=== PATIENT | female | born 1945 | race Hispanic/Latino ===

== ENCOUNTER 2017-03-17 15:32 | Emergency (ER) | payer OTHER ==
[2017-03-17] MEDS ORDERED: ACETAMINOPHEN 325 MG TAB ONE (15:43)
[2017-03-17] MEDS ORDERED: TRAMADOL HCL 50 MG TABLET ONE (15:43)
== END 2017-03-17 16:11 | disposition home or self-care (01) ==
LOC: EDH 15:32
DX: S63.697A Other sprain of left little finger, initial encounter (principal); I10 Essential (primary) hypertension; E11.9 Type 2 diabetes mellitus without complications; E78.5 Hyperlipidemia, unspecified; Z87.891 Personal history of nicotine dependence; X58.XXXA Exposure to other specified factors, initial encounter; Y93.89 Activity, other specified; Y92.89 Other specified places as the place of occurrence of the external cause; Y99.8 Other external cause status
CPT/HCPCS: 29130; 73140

== ENCOUNTER → 2017-11-22 | Outpatient (CLI) | payer OTHER | END | disposition home or self-care (01) | LOC: RAH 09:27 | PROVIDERS: ATTEND Orthopaedic Surgery | DX: M19.011 Primary osteoarthritis, right shoulder (principal); M75.121 Complete rotator cuff tear or rupture of right shoulder, not specified as traumatic; I10 Essential (primary) hypertension; E11.9 Type 2 diabetes mellitus without complications; E78.5 Hyperlipidemia, unspecified | CPT/HCPCS: 73221 ==

== ENCOUNTER → 2018-05-02 | Outpatient (CLI) | payer OTHER | END | disposition home or self-care (01) | LOC: RAH 08:10 | PROVIDERS: ATTEND Internal Medicine | DX: K76.0 Fatty (change of) liver, not elsewhere classified (principal); N28.1 Cyst of kidney, acquired | CPT/HCPCS: 76700 ==

== ENCOUNTER → 2020-07-24 | Outpatient (CLI) | payer OTHER | END | disposition home or self-care (01) | LOC: RAH 07:33 | PROVIDERS: ATTEND Internal Medicine Gastroenterology | DX: R10.13 Epigastric pain (principal); N28.1 Cyst of kidney, acquired; K76.0 Fatty (change of) liver, not elsewhere classified | CPT/HCPCS: 76700 ==

== ENCOUNTER → 2021-12-28 | Outpatient (CLI) | payer OTHER | END | disposition home or self-care (01) | LOC: RAH 12:00 | PROVIDERS: ATTEND Internal Medicine | DX: M47.815 Spondylosis without myelopathy or radiculopathy, thoracolumbar region (principal); R10.9 Unspecified abdominal pain | CPT/HCPCS: 74021 ==

== ENCOUNTER → 2022-06-23 | Outpatient (CLI) | payer OTHER | END | disposition home or self-care (01) | LOC: RAH 12:57 | PROVIDERS: ATTEND Internal Medicine Cardiovascular Disease | DX: Z13.6 Encounter for screening for cardiovascular disorders (principal) | CPT/HCPCS: 75571 ==

== ENCOUNTER → 2024-05-28 | Outpatient (CLI) | payer OTHER, MEDICARE ==
--- NOTE | 2024-05-28 14:00 | HMCIMG ---
DEXA BONE DENSITY SURVEY HISTORY: Osteoporosis COMPARISON: None FINDINGS: Bone densitometry study was performed. Bone mineral density of the lumbar spine is 0.927 gram per centimeter square which corresponds to a T score of -1.1 and a Z score of 1.5. Bone mineral density of the left hip is 0.842 grams per centimeter square which corresponds to a T score of -0.8 and a Z score of 1.2. IMPRESSION: 1. Osteopenia of the lumbar spine and normal bone mineral density of left hip.
== END | disposition home or self-care (01) ==
LOC: RAH 13:11
PROVIDERS: ATTEND Internal Medicine
DX: M85.88 Other specified disorders of bone density and structure, other site (principal); M81.0 Age-related osteoporosis without current pathological fracture
CPT/HCPCS: 77080

== ENCOUNTER 2024-09-28 13:44 | Emergency (ER) | payer MEDICARE, OTHER ==
[~2024-09-28] VITALS: Ht 152.4 cm; Wt 83.9 kg
[2024-09-28] MEDS: ORPHENADRINE 60MG/2ML IM ONE (14:27)
[2024-09-28] MEDS: TRIAMCINOLONE ACETONIDE 40 MG/ML 1ML VIAL IM ONE (14:27)
[2024-09-28] MEDS ORDERED: METH-662 PO (15:17)
[2024-09-28] MEDS ORDERED: LIDO1ADH71 TP (15:17)
--- NOTE | 2024-09-28 15:17 | ERN ---
General Chief Complaint: Hip Pain/Injury Stated Complaint: HIP PAIN Time Seen by MD: 13:46 Source: patient, family History of Present Illness Initial Comments Patient is a 78-year-old female coming in complaining of multiple joint pains. Patient states that she has been having hip pain for several months and recently started having left shoulder pain. States he has she attributes this to over usage but states he has not fallen has been evaluated by her PCP in his pending re-evaluation. Allergies: Coded Allergies: lisinopril (Unverified Allergy, Severe, SEVERE COUGH, 10/07/11) Past Medical History Past Medical History: Diabetes-Type II, High Cholesterol, Hypertension, Hypothyroid Past Surgical History: None ROS Dictation CONSTITUTIONAL: No chills, no fever, no weakness, no diaphoresis, no malaise. HEAD/FACE: No signs of trauma. EENT: No eye pain, no blurred vision, no tearing, no double vision, no ear pain, no ear discharge, no nose pain, no nasal congestion, no throat pain, no throat swelling, no mouth pain. RESPIRATORY: No cough, no orthopnea, no SOB, no stridor, no wheezing. CARDIOVASCULAR: No chest pain, no edema, no palpitations, no syncope. GASTROINTESTINAL/ABDOMINAL: No abdominal pain, no constipation, no diarrhea, no nausea, no vomiting. GENITOURINARY: No abnormal discharge, no dysuria, no frequent urination, no hematuria. No complaints of pain in the genitals. MUSCULOSKELETAL: No back pain, no gout, joint pain, no joint swelling, muscle pain, muscle stiffness, neck pain. INTEGUMENTARY: No change in color, no change in hair/nails, no dryness, no lesion, no lumps, no rash. NEUROLOGICAL/PSYCH: No anxiety, not depressed, no emotional problem, no headache, no numbness, no pre-existing deficit, no history of seizures, no tremors, no weakness. HEMATOLOGIC/LYMPHATIC: Not anemic, no history of blood clots, no apparent bleeding, no bruising, glands not swollen. All Systems Negative, Except as Noted. Physical Exam Physical Exam Dictation VITAL SIGNS: Reviewed. GENERAL APPEARANCE: Alert, oriented x3, no acute distress, obese. HEAD AND FACE: Non-traumatic. EYES: PERRL, pink conjunctivas, eyelid no trauma, anterior chamber clear. EARS: Pinnas intact and no signs of trauma or erythema. Ear canals clear and no discharge. TMs no erythema. NOSE: No discharge, no bleeding. OROPHARYNX: Mouth normal, teeth no caries, tongue pink. Pharynx clear, no erythema. Tonsils no exudates, no abscesses noted. Mucous membrane moist. NECK: Supple, non-tender, no thyromegaly, no masses, no JVD, no bruits. BREAST: Deferred. CHEST: No tenderness, no crepitus, no paradoxical movement, no retractions. LUNGS: Clear, well-ventilated, symmetric, no rales, no wheezing, no rhonchi, no stridor, good breath sounds bilaterally. HEART: Regular rate, regular rhythm, no murmur, no gallops. VASCULAR: No peripheral edema. ABDOMEN: Soft, positive bowel sounds, nondistended, no guarding, nontender, no rebound, no masses no hepatomegaly, no splenomegaly, no Ambriz's sign, no hernias. RECTAL: Deferred. GENITAL: Deferred. NEUROLOGICAL: Normal speech, gross motor function intact, gross sensory function intact. MUSCULOSKELETAL: Neck nontender, full range of motion, back nontender, full range of motion. EXTREMITIES: Nontender, full range of motion. SKIN: Color pink, dry, no turgor, no rash, no lacerations, no abrasions, no contusions. LYMPHATICS: Deferred. Results Laboratory and Microbiology Labs Reviewed?: Yes MDM MDM: Differential diagnosis: Arthritis of the hips, arthritis of the shoulder, Rationale: Tests considered and ordered secondary to shared decision making include: Previous outside records reviewed: Old ER visits. Risk of complication and/or morbidity or mortality of patient management: None Medications-Per medication reconciliation Need for hospitalization: Patient does not meet criteria for hospitalization. Need for emergency major/minor surgery: No Patient is a 78-year-old female coming in complaining of multiple joint pain. On physical exam joints are aligned no swelling. Patient received antispasmodics anti-inflammatories states that her pain has improved significantly and she can move her neck. Patient will be discharged in stable condition with a diagnosis of muscle spasms of the neck and back as well as arthritis of the hips ED Course Orders Procedure Category Date Status Time Orphenadrine Citrate PHA 09/28/24 Complete (Norflex) 14:30 Triamcinolone Acet PHA 09/28/24 Complete 40mg/Ml 1ml (Kenalog 14:30 Current Medications Medications (Trade) Dose Ordered Sig/Deangelo Route PRN Reason Start Time Stop Time Status Last Admin Dose Admin Orphenadrine Citrate (Norflex) 60 mg ONCE ONCE IM 09/28/24 14:30 09/28/24 14:31 DC 09/28/24 14:27 Triamcinolone Acetonide (Kenalog 40) 40 mg ONCE ONCE IM 09/28/24 14:30 09/28/24 14:31 DC 09/28/24 14:27 Vital Signs Date Time Temp Pulse Resp B/P (MAP) Pulse Ox O2 Delivery O2 Flow Rate FiO2 09/28/24 13:48 98.1 72 16 185/92 94 Room Air* 0 21 09/28/24 13:45 98.1 72 16 185/92 94 Room Air 0 DX & DISP Disposition: Discharge Departure Impression: Primary Impression: Arthritis pain of hip Additional Impression: Neck muscle spasm Condition: Stable Scripts Lidocaine (Lidocaine Pain Relief) 4 % Adh..patch 1 PATCH TP DAILY for 30 Days, #30 PATCH 0 Refills Prov: SERA ESCAMILLA MD 09/28/24 Methocarbamol (Robaxin) 750 Mg Tab 1 TAB PO BID for 7 Days, #14 TAB 0 Refills Prov: SERA ESCAMILLA MD 09/28/24 Additional Instructions: FOLLOW-UP WITH PRIMARY CARE PROVIDER IN 1 TO 2 DAYS. TAKE MEDICATIONS DIRECTED HERE IN THE EMERGENCY ROOM. OKAY TO CONTINUE HOME MEDICATIONS UNLESS OTHERWISE DISCUSSED DURING YOUR VISIT IN THE EMERGENCY ROOM TODAY. RETURN TO YOUR NEAREST EMERGENCY ROOM IF SYMPTOMS WORSEN OR IF THERE IS NO IMPROVEMENT. CALL 911 IF YOU NEED IMMEDIATE ASSISTANCE. TAKE TYLENOL [id number] NEEDED AND IF NO CONTRAINDICATIONS ARE PRESENT. INCREASE ORAL HYDRATION. A WOUND CULTURE OR URINE CULTURE WAS ORDERED HERE IN THE EMERGENCY ROOM DEPARTMENT PLEASE FOLLOW-UP WITH PRIMARY CARE PROVIDER AND ADVISE THEM TO GET REPORTS FROM OUR FACILITY. IF YOU HAD ANY DONNA WRAP/SPLINTS THAT WERE APPLIED HERE, PLEASE DO NOT REMOVE THEM UNTIL YOU SEE YOUR PRIMARY CARE OR SPECIALTY. Referrals: Referrals: RENNY SOLORZANO MD (PCP) Time of Disposition: 15:16 SERA ESCAMILLA MD Sep 28, 2024 15:17
[2024-09-28 15:45] VITALS: BP 175/80; PULSE 70; RESP 16; TEMP 98; O2SAT 94
== END 2024-09-28 15:52 | disposition home or self-care (01) ==
LOC: EDH 13:44
DX: M16.12 Unilateral primary osteoarthritis, left hip (principal); M62.838 Other muscle spasm; E03.9 Hypothyroidism, unspecified; E11.9 Type 2 diabetes mellitus without complications; E78.00 Pure hypercholesterolemia, unspecified; I10 Essential (primary) hypertension; Z88.8 Allergy status to other drugs, medicaments and biological substances
CPT/HCPCS: 99284; 96372 ×2; J3301; J2360

== ENCOUNTER 2024-11-02 18:21 | Emergency (ER) | payer OTHER ==
[~2024-11-02] VITALS: Ht 154.9 cm; Wt 83.9 kg
[~2024-11-02 18:21] MED LIST: LIDO1ADH71 TP; METH-662 PO
--- NOTE | 2024-11-02 19:56 | HMCIMG ---
EXAM: CR right Knee, 4 View. CLINICAL HISTORY: fall COMPARISON: None provided. FINDINGS: BONES: No acute fracture or aggressive appearing osseous lesion. JOINTS: The joint spaces show no significant degenerative disease. There is no joint effusion appreciated. SOFT TISSUES: The soft tissues are unremarkable. IMPRESSION: No acute osseous pathology evident. /[place]
--- NOTE | 2024-11-02 20:04 | HMCIMG ---
EXAM: CR right foot, 3 View. CLINICAL HISTORY: fall COMPARISON: None provided. FINDINGS: BONES: No fracture JOINTS: The joint spaces appear within normal limits. No dislocation. SOFT TISSUES: The soft tissues are unremarkable. MISCELLANEOUS: Large calcaneal spur IMPRESSION: 1. Large calcaneal spur 2. No fracture /[place]
--- NOTE | 2024-11-02 20:17 | ERN ---
ED Note History of Present Illness Stated Complaint: RT KNEE INJURY Chief Complaint: Knee Injury/Swelling Time Seen by MD: 18:23 Time Seen by Midlevel: 18:26 Dictation: 79-year-old female with a history of hypertension diabetes coming in with complaints of right knee pain, left foot pain and lower back pain status post fall. Patient was sitting on a bench states it was pretty has been when she got off she fell on landing on her knee. No head injury, no LOC, no blood thinners. Allergies: Coded Allergies: lisinopril (Unverified Allergy, Severe, SEVERE COUGH, 10/07/11) Home Meds Active Scripts Lidocaine (Lidocaine Pain Relief) 4 % Adh..patch, 1 PATCH TP DAILY for 30 Days, #30 PATCH 0 Refills Prov:SERA ESCAMILLA MD 09/28/24 Methocarbamol (Robaxin) 750 Mg Tab, 1 TAB PO BID for 7 Days, #14 TAB 0 Refills Prov:SERA ESCAMILLA MD 09/28/24 Past Medical History Past Medical History: Diabetes-Type II, High Cholesterol, Hypertension, Hypothyroid Surgical History: None Review of System Dictation Constitutional: Negative for fever,chills, and weight loss Eyes: Negative for injury, pain,redness, and discharge ENT: Negative for injury,pain or swelling Cardiovascular: Negative for chest pain, palpitations, and edema Respiratory: Negative for shortness of breath, cough, and wheezing, Abdomen/GI: Negative for abdominal pain, nausea, vomiting, diarrhea, and constipation Back: Negative for injury and pain : Negative for injury, bleeding and discharge MS/Extremity: Complaining of right knee pain, left foot pain and back pain Skin: Negative for rash, and discoloration Neuro: Negative for headache, weakness, numbness, tingling, and seizure Psych: Negative for suicide ideation, homicidal ideation, and hallucinations Review of Systems: was completed Initial Vital Sign VS Vital Signs Date Time Temp Pulse Resp B/P (MAP) Pulse Ox O2 Delivery O2 Flow Rate FiO2 11/02/24 18:23 98.1 75 20 189/109 99 Room Air Physical Exam Dictation General: awake, alert, NAD Head/Face: Normocephalic, atraumatic Eyes: PERRL, EOMI, vision at baseline ENT: oral cavity clear, TMs clear, no signs of infection Neck: Trachea midline, supple, no nuchal rigidity Cardiovascular: RRR, normal S1/S2, No MRGs, no JVD Respiratory: CTAB, no respiratory distress, No rales or wheezes Abdomen: Soft, non-tender, non-distended, normal bowel sounds, no guarding or rebound. Skin: Warm, dry, normal turgor, no rash, superficial abrasion to the right knee MS/Extremity: Pulses equal, no cyanosis, neurovascular intact, FROM Neuro: COAx4, GCS 15, strength 5/5, CN 2-12 intact, normal cerebellar exam, normal gait, Psych: Normal behavior, mood, and affect normal Results (Laboratory/Radiology) X-RAY Comment: [facility] [id number] [place] [id number] IMAGING REPORT Signed PATIENT: VARUN MEJIA MR#: [id number] : 1945 SEX: F AGE: 79 LOCATION: [facility] ORDER 29 STATUS: REG ER REPORT#: [id number] SERVICE 27 REASON: fall ORDERING PHYSICIAN: BOBY HOGUE METAL INSPECTOR PROCEDURE: KNEE 4V RT - KNEE 4+VWS RT EXAM: CR right Knee, 4 View. CLINICAL HISTORY: fall COMPARISON: None provided. FINDINGS: BONES: No acute fracture or aggressive appearing osseous lesion. JOINTS: The joint spaces show no significant degenerative disease. There is no joint effusion appreciated. SOFT TISSUES: The soft tissues are unremarkable. IMPRESSION: No acute osseous pathology evident. /[place] DICTATED BY: NIK ZALDIVAR MD DATE: 11/02/242054 ELECTRONICALLY SIGNED BY: NIK ZALDIVAR MD DATE: 11/02/242054 [facility] [facility] [id number] [place] [id number] IMAGING REPORT Signed PATIENT: VARUN MEJIA MR#: [id number] : 1945 SEX: F AGE: 79 LOCATION: ED ORDER 29 STATUS: REG ER HOSPITAL REPORT#: [id number] SERVICE 27 REASON: fall ORDERING PHYSICIAN: BOBY HOGUE NP PROCEDURE: FT 3VW LT - FOOT COMP 3+VWS LT EXAM: CR right foot, 3 View. CLINICAL HISTORY: fall COMPARISON: None provided. FINDINGS: BONES: No fracture JOINTS: The joint spaces appear within normal limits. No dislocation. SOFT TISSUES: The soft tissues are unremarkable. MISCELLANEOUS: Large calcaneal spur IMPRESSION: 1. Large calcaneal spur 2. No fracture /[place] DICTATED BY: NIK ZALDIVAR MD DATE: 11/02/242103 ELECTRONICALLY SIGNED BY: NIK ZALDIVAR MD DATE: 11/02/242103 [address] [place] [address] IMAGING REPORT Signed PATIENT: VARUN MEJIA MR#: [id number] : 1945 SEX: F AGE: 79 LOCATION: [facility] ORDER 29 STATUS: REG ER HOSPITAL REPORT#: [id number] SERVICE 27 REASON: fall ORDERING PHYSICIAN: BOBY HOGUE NP PROCEDURE: LUMB 2 3VW - LUMBAR SPINE 2-3VWS EXAM: CR Lumbar Spine, 2 views CLINICAL HISTORY: Fall. COMPARISON: None provided. FINDINGS: Grade 1 degenerative anterolisthesis of L4 on L5. Mild osteopenia. Mild spondylosis and degenerative disc space narrowing, most pronounced at L4-L5. Normal vertebral body heights. No acute fracture. Atherosclerotic vascular calcifications. IMPRESSION: No acute bony abnormality is evident. Grade 1 degenerative anterolisthesis of L4 on L5. Mild osteopenia. Mild spondylosis and degenerative disc space narrowing, most pronounced at L4-L5. /[place] DICTATED BY: RENEE LOYD Jr., MD DATE: 11/02/242201 ELECTRONICALLY SIGNED BY: RENEE LOYD Jr., MD DATE: 11/02/242201 ED Course ED Course Orders Procedure Category Date Status Time Knee 4+Vws Rt RAD 11/02/24 Resulted 18:28 Foot Comp 3+Vws Lt RAD 11/02/24 Resulted 18:28 Lumbar Spine 2-3vws RAD 11/02/24 Resulted 18:28 Acetaminophen 325 Tab PHA 11/02/24 Complete (Tylenol 325mg Tab 18:30 Current Medications Medications (Trade) Dose Ordered Sig/Deangelo Route PRN Reason Start Time Stop Time Status Last Admin Dose Admin Acetaminophen (TYLenol 325MG TAB) 650 mg ONCE STAT PO 11/02/24 18:30 11/02/24 18:37 DC 11/02/24 19:30 Vital Signs Date Time Temp Pulse Resp B/P (MAP) Pulse Ox O2 Delivery O2 Flow Rate FiO2 11/02/24 18:23 98.1 75 20 189/109 99 Room Air Medical Decision Making MDM MDM: 79-year-old female with a history of hypertension diabetes coming in with complaints of right knee pain, left foot pain and lower back pain status post fall. Patient was sitting on a bench states it was pretty has been when she got off she fell on landing on her knee. No head injury, no LOC, no blood thinners. X-rays of the right knee and left foot showed no acute findings. X-ray of the L-spine shows no acute bony abnormality, degenerative changes and spondylosis of L4 and five. These are all chronic changes, patient will be discharged to follow up outpatient with PCP. Educated patient and daughter at bedside to take Tylenol or Motrin [id number] for pain control. If patient develops any worsening symptoms to return back to the emergency room. Differential diagnosis: Knee fracture, knee dislocation, foot contusion, foot fracture, L-spine injury, lower back pain, muscle strain Rationale: Tests considered and ordered secondary to shared decision making include: Previous outside records reviewed: Old ER visits. Risk of complication and/or morbidity or mortality of patient management: None Medications-Per medication reconciliation Need for hospitalization: Patient does not meet criteria for hospitalization. Need for emergency major/minor surgery: No There are no social concerns with this patient. Prescription drug management Prescriptions will include symptomatic care Patient's prior external medical records from other ER visits were reviewed by me as indicated. Prior testing and results from previous visits were reviewed. Prior tests were taken into account with medical decision making and resource utilization, independent historian/historians were used to obtain complete me dical history. I independently interpreted the test that were performed, results were reviewed by me and considered findings on radiology if ordered. Medical management and examination interpretation discussions were had by me with other qualified healthcare professionals as indicated for the patient's care. DX & DISP Disposition: Discharge Departure Impression: Primary Impression: Knee abrasion Additional Impression: Back pain Condition: Stable Additional Instructions: Your x-ray showed no acute findings. Follow up with your primary doctor in 1-2 days return to the hospital for any worsening condition. Referrals: RENNY SOLORZANO MD (PCP) Time of Disposition: 21:18 I have reviewed the case, and I agree with, Diagnosis and Plan BOBY HOGUE NP Nov 02, 2024 20:17
--- NOTE | 2024-11-02 20:42 | NUR ---
IRRIGATED WITH SKINTEGRITY, RINSED WITH STERILE SALINE, DRIED, DRESSING NONADHERENT PAD, WRAPPED WITH KERLIX.
--- NOTE | 2024-11-02 21:03 | HMCIMG ---
EXAM: CR Lumbar Spine, 2 views CLINICAL HISTORY: Fall. COMPARISON: None provided. FINDINGS: Grade 1 degenerative anterolisthesis of L4 on L5. Mild osteopenia. Mild spondylosis and degenerative disc space narrowing, most pronounced at L4-L5. Normal vertebral body heights. No acute fracture. Atherosclerotic vascular calcifications. IMPRESSION: No acute bony abnormality is evident. Grade 1 degenerative anterolisthesis of L4 on L5. Mild osteopenia. Mild spondylosis and degenerative disc space narrowing, most pronounced at L4-L5. /[place]
[2024-11-02 22:49] VITALS: BP 164/72; PULSE 78; RESP 18; TEMP 98.3; O2SAT 98
== END 2024-11-02 22:59 | disposition home or self-care (01) ==
LOC: EDH 18:21
DX: S80.211A Abrasion, right knee, initial encounter (principal); M54.50 Low back pain, unspecified; E03.9 Hypothyroidism, unspecified; E11.9 Type 2 diabetes mellitus without complications; E78.00 Pure hypercholesterolemia, unspecified; I10 Essential (primary) hypertension; Z88.8 Allergy status to other drugs, medicaments and biological substances; W18.39XA Other fall on same level, initial encounter; Y93.89 Activity, other specified; Y92.89 Other specified places as the place of occurrence of the external cause; Y99.8 Other external cause status
CPT/HCPCS: 99285; 96374; 73630; 72100; 73564; 96376; J0360 ×2